=== PATIENT | female | born 1955 | race Caucasian/White ===

== ENCOUNTER 2019-02-13 10:43 | Day surgery (SDC) | payer OTHER ==
[2019-02-13] MEDS ORDERED: PROPOFOL 20 ML (11:20)
[2019-02-13] MEDS ORDERED: ROCURONIUM 50 MG INJ (11:20)
[2019-02-13] MEDS ORDERED: MIDAZOLAM 1 MG/ML 2 ML INJ (11:20)
[2019-02-13] MEDS ORDERED: FENTAnyl 50 MCG/ML VIAL ×2 (11:20→14:19)
[2019-02-13] MEDS ORDERED: ROPIVACAINE 0.5 % 30 ML VIAL (11:20)
[2019-02-13] MEDS ORDERED: METOCLOPRAMIDE 10 MG INJ IV (11:30)
[2019-02-13] MEDS ORDERED: ONDANSETRON 4 MG INJ IV (11:30)
[2019-02-13] MEDS ORDERED: EPHEDrine 25 MG/5 ML SYG IV (11:30)
[2019-02-13] MEDS ORDERED: OXYCODONE/ACETAMINOPHEN (5/325) TAB PO (11:30)
[2019-02-13] MEDS ORDERED: LABETALOL HCL 20MG INJ IV (11:30)
[2019-02-13] MEDS ORDERED: FENTAnyl 50 MCG/ML VIAL IV ×3 (11:30)
[2019-02-13] MEDS ORDERED: HYDROmorphONE 1 MG/5 ML IV SYRINGE IV ×3 (11:30)
[2019-02-13] MEDS ORDERED: MEPERIDINE 25 MG INJ IV (11:30)
[2019-02-13] MEDS: GABAPENTIN 300 MG CAP PO (11:42)
[2019-02-13] MEDS: DEXAMETHASONE 2 MG TAB PO (11:42)
[2019-02-13] MEDS ORDERED: TRANEXAMIC ACID 1GM/100ML(PMX) 100 ML IVPB (12:00)
[2019-02-13] MEDS ORDERED: CEFAZOLIN 2 GM/50 ML (PMX) 50 ML IVPB (12:00)
[2019-02-13] MEDS ORDERED: LABETALOL HCL 20MG INJ (12:53)
[2019-02-13] MEDS ORDERED: DIPHENHYDRAMINE 50 MG INJ (12:53)
[2019-02-13] MEDS ORDERED: ONDANSETRON 4 MG INJ (12:59)
[2019-02-13] MEDS ORDERED: DEXAMETHASONE 4 MG/ML 5 ML INJ (12:59)
[2019-02-13] MEDS ORDERED: KETOROLAC 30 MG INJ (12:59)
[2019-02-13] MEDS ORDERED: METOCLOPRAMIDE 10 MG INJ (12:59)
[2019-02-13] MEDS ORDERED: SUGAMMADEX SODIUM 200 MG/2 ML VIAL IV (14:10)
== END 2019-02-13 17:51 | disposition home or self-care (01) ==
LOC: SDS 10:43
DX: M75.101 Unspecified rotator cuff tear or rupture of right shoulder, not specified as traumatic (principal); M19.011 Primary osteoarthritis, right shoulder; M75.41 Impingement syndrome of right shoulder; S43.491A Other sprain of right shoulder joint, initial encounter; X58.XXXA Exposure to other specified factors, initial encounter; E11.9 Type 2 diabetes mellitus without complications; E03.9 Hypothyroidism, unspecified; E78.00 Pure hypercholesterolemia, unspecified; Z79.4 Long term (current) use of insulin; Z79.84 Long term (current) use of oral hypoglycemic drugs
CPT/HCPCS: 29823; 82962

== ENCOUNTER 2019-03-27 09:05 | Day surgery (SDC) | payer OTHER ==
[~2019-03-27 09:05] MED LIST: CEFAZOLIN 2 GM/50 ML (PMX) 50 ML IVPB
[2019-03-27] MEDS: GABAPENTIN 300 MG CAP PO (10:59)
[2019-03-27] MEDS: DEXAMETHASONE 2 MG TAB PO (11:00)
[2019-03-27] MEDS: LACTATED RINGER'S 1,000 ML IV (11:02)
[2019-03-27] MEDS ORDERED: TRANEXAMIC ACID 1 GM/100 ML (PMX) (11:27)
[2019-03-27] MEDS ORDERED: LIDOCAINE 2% (SDV) 5 ML INJ (11:27)
[2019-03-27] MEDS ORDERED: PROPOFOL 20 ML (11:27)
[2019-03-27] MEDS ORDERED: ROPIVACAINE 0.5 % 30 ML VIAL (11:28)
[2019-03-27] MEDS ORDERED: MIDAZOLAM 1 MG/ML 2 ML INJ (11:28)
[2019-03-27] MEDS ORDERED: METOCLOPRAMIDE 10 MG INJ (11:30)
[2019-03-27] MEDS ORDERED: CEFAZOLIN 1 GM INJ (11:30)
[2019-03-27] MEDS ORDERED: ONDANSETRON 4 MG INJ (11:30)
[2019-03-27] MEDS ORDERED: MIDAZOLAM 1 MG/ML 2 ML INJ IV (13:30)
[2019-03-27] MEDS ORDERED: LABETALOL HCL 20MG INJ IV (13:30)
[2019-03-27] MEDS ORDERED: EPHEDrine 25 MG/5 ML SYG IV (13:30)
[2019-03-27] MEDS ORDERED: ONDANSETRON 4 MG INJ IV (13:30)
[2019-03-27] MEDS ORDERED: METOCLOPRAMIDE 10 MG INJ IV (13:30)
[2019-03-27] MEDS ORDERED: HYDROmorphONE 1 MG/5 ML IV SYRINGE IV ×3 (13:30)
[2019-03-27] MEDS ORDERED: MEPERIDINE 25 MG INJ IV (13:30)
[2019-03-27] MEDS ORDERED: DIPHENHYDRAMINE 50 MG INJ IV (13:30)
[2019-03-27] MEDS ORDERED: OXYCODONE/ACETAMINOPHEN (5/325) TAB PO ×2 (13:30)
[2019-03-27] MEDS ORDERED: hydrALAzine 20 MG INJ IV (13:30)
[2019-03-27] MEDS ORDERED: FENTAnyl 50 MCG/ML VIAL IV ×3 (13:30)
== END 2019-03-27 16:15 | disposition home or self-care (01) ==
LOC: SDS 09:05
DX: T84.038A Mechanical loosening of other internal prosthetic joint, initial encounter (principal); M65.811 Other synovitis and tenosynovitis, right shoulder; Y83.8 Other surgical procedures as the cause of abnormal reaction of the patient, or of later complication, without mention of misadventure at the time of the procedure; Y79.3 Surgical instruments, materials and orthopedic devices (including sutures) associated with adverse incidents; E78.5 Hyperlipidemia, unspecified; E11.9 Type 2 diabetes mellitus without complications; Z79.84 Long term (current) use of oral hypoglycemic drugs; Z79.4 Long term (current) use of insulin
CPT/HCPCS: 29822; 82962